=== PATIENT | female | born 1980 | race Caucasian/White ===

== ENCOUNTER → 2017-10-14 12:23 | Outpatient (CLI) | payer MEDICAID, SELFPAY ==
[2017-10-14 14:31] LABS: Absolute Lymphocyte Count 1.67 X10^3/ul (0.83-4.51); Absolute Neutrophil Count 2.3 X10^3/uL (2.0-7.7); Basophil# 0.02 X10^3/uL; Basophil% 0.5 % (0-1); Eosinophil# 0.07 X10^3/uL; Eosinophils% 1.6 % (0-5); Hematocrit 39.6 % (37-47); Hemoglobin 13.1 g/dl (12.0-15.0); Lymphocyte # 1.67 X10^3/ul (4.0); Lymphocyte % 38.6 % (19-41); Mean Corp Hgb Conc 33.1 g/gl (32-36); Mean Corpuscular Volume 87.8 fL (81-99); Mean Platelet Vol. 9.8 fl (6.2-12.0); Monocyte# 0.23 X10^3/uL; Monocyte% 5.3 % (0-10); Neutrophil # 2.34 X10^3/uL (2.7-7.7); Platelet Count 204 K/mm3 (150-450); RBC Distribution Width CV 13.3 % (11.6-14.6); RBC Distribution Width SD 42.9 fl (35.1-43.9); Red Blood Count 4.51 M/mm3 (4.2-5.4); White Blood Count 4.3 K/mm3 (4.4-11.0)
[2017-10-14 14:35] LABS: POSITIVE COUNT NO; POSITIVE DIFFERENTIAL NO; POSITIVE MORPHOLOGY NO
[2017-10-14 14:53] LABS: Hemoglobin A1c 5.4 % (4.2-6.3)
[2017-10-14 15:03] LABS: AST(SGOT) 26 U/L (15-37); Alanine Aminotransfer ALT/SGPT 46 U/L (13-56); Albumin, Serum 3.7 g/dL (3.2-5.0); Alkaline Phosphatase 124 U/L (45-117); Anion Gap 8 (5-15); BUN 9 mg/dL (7-18); BUN/Creat Ratio 13.2 RATIO (10-20); Calcium,Total 8.7 mg/dL (8.5-10.1); Chloride 106 mmol/L (98-107); Creatinine, Serum 0.68 mg/dL (0.55-1.02); EST Glomerular Filtration Rate 104 mL/min (>60); Est Glom Filt Rate - Afr Amer 126 mL/min (>60); Globulin 3.8 g/dL (2.2-4.2); Glucose 91 mg/dL (74-106); Potassium 4.1 mmol/L (3.5-5.1); Protein, Total 7.5 g/dL (6.4-8.2); Sodium Level 139 mmol/L (136-145)
[2017-10-15 09:33] LABS: Cholesterol 189 mg/dL (200); High Density Lipoprotein 51 mg/dL; Triglycerides 113 mg/dL; Very Low Density Lipoprotein 23 mg/dL (5-40)
[2017-10-15 10:17] LABS: HIV - WCH Non-Reactive (Nonreactive)
[2017-10-15 11:56] LABS: HEPATITIS B SURFACE AG Negative (Negative); Hep B Surface Antibodies Reactive (.); Hep C Antibodies <0.1 s/co ratio (0.0-0.9)
== END ==
PROVIDERS: Visit Provider Family Medicine
DX: F41.8 Other specified anxiety disorders (principal); R60.9 Edema, unspecified; Z86.2 Personal history of diseases of the blood and blood-forming organs and certain disorders involving the immune mechanism; Z83.3 Family history of diabetes mellitus; Z87.898 Personal history of other specified conditions
CPT/HCPCS: 36415; 80053; 80061; 83036; 84443; 85025; 86703; 86706; 86803; 87340

== ENCOUNTER → 2017-10-30 09:03 | Outpatient (CLI) | payer MEDICAID, SELFPAY ==
--- NOTE | 2017-10-30 09:06 | ECHOD_ITS ---
Reason For Study: PHTN Procedure This was a 2D Doppler, Color Flow transthoracic echocardiogram. Exam performed in department. Left Ventricle Normal LV size. Left ventricular systolic function is normal. The estimated ejection fraction is 56 %. No evidence for diastolic dysfunction. No regional wall motion abnormalities noted. Right Ventricle Normal RV size. Normal systolic function. Atria Normal left atrium. Normal right atrium. Mitral Valve Normal mitral valve. Tricuspid Valve Normal tricuspid valve. Mild tricuspid valve insufficiency. Pulmonary artery systolic pressure is 27 mmHg. Aortic Valve Normal aortic valve. Trisinus/trileaflet aortic valve. Pulmonic Valve Normal pulmonic valve. Great Vessels Normal aortic root. The pulmonary artery is normal size. Normal inferior vena cava. Pericardium/Pleural No pericardial effusion. MMode/2D Measurements & Calculations LVIDd: 4.3 cm IVSd: 0.97 cm Ao root diam: 2.4 cm LVIDs: 2.9 cm LVPWd: 1.0 cm LA dimension: 3.1 cm RVDd: 3.1 cm FS: 32.5 % LAV(MOD-bp): 46.2 ml LA A4 area: 15.7 cm2 RA A4 area: 12.1 cm2 LAV(MOD-bp) Indexed: 26.5 ml/m2 LAV(MOD-sp2): 44.4 ml LAV(MOD-sp4): 44.1 ml Time Measurements MV dec time: 0.19 sec Doppler Measurements & Calculations MV E max matt: 115.0 cm/sec Lat Peak E' Matt: 12.6 cm/sec Med Peak E' Matt: 12.0 cm/sec MV A max matt: 77.8 cm/sec E/E' lat: 9.2 E/E' med: 9.5 MV E/A: 1.5 Ao V2 max: 127.4 cm/sec PA V2 max: 85.0 cm/sec TR max matt: 236.3 cm/sec Ao max P.5 mmHg TR max P.4 mmHg Interpretation Summary Normal LV size. Left ventricular systolic function is normal. The estimated ejection fraction is 56 %. No evidence for diastolic dysfunction. Mild tricuspid valve insufficiency. Ordering Physician: Anthony Patino Referring Physician: Anthony Patino Performed By: Annette Abbott RDCS, RVT
== END ==
PROVIDERS: Family Provider Family Medicine; PCP Family Medicine; Visit Provider Family Medicine
DX: I27.20 Pulmonary hypertension, unspecified (principal)
CPT/HCPCS: 93306

== ENCOUNTER → 2017-12-03 17:12 | Outpatient (CLI) | payer MEDICAID, SELFPAY ==
[2017-12-03 18:56] LABS: Chlamydia Trachomatis by PCR Negative (Negative); Neisserai gonorrhoeae by PCR Negative (Negative); Probe Check PASS; Sample Adequacy Control PASS; Specimen Processing Control PASS
[2017-12-09 11:07] LABS: HPV APTIMA, High Risk Negative (Negative)
== END ==
PROVIDERS: Family Provider Family Medicine; PCP Family Medicine; Visit Provider Nurse Practitioner Women's Health
DX: Z12.4 Encounter for screening for malignant neoplasm of cervix (principal); Z11.3 Encounter for screening for infections with a predominantly sexual mode of transmission
CPT/HCPCS: 87491; 87591; 88175; G0145

== ENCOUNTER 2018-04-15 22:01 | Emergency (ER) | payer MEDICAID, SELFPAY ==
[2018-04-15 22:03] VITALS: BP 169/94; PULSE 66; RESP 18; TEMP 36.9; O2SAT 99; BMI 34.9
[2018-04-15 22:25] LABS: Mucous, Urine 0 SEEN /hpf (<or=2+)
[2018-04-15] MEDS: Ondansetron 4 MG/2 ML Vial IV (22:35)
[2018-04-15] MEDS: 0.9% Normal Saline 1,000 ML 1000 ML IV (22:35)
[2018-04-15] MEDS: Ketorolac 30 MG/ML Syringe IV (22:35)
[2018-04-15 22:42] LABS: Color, Urine Yellow (Yellow); Glucose, Dipstick Normal (Normal); Ketone-Dipstick Negative (Negative); Leukocyte Esterase-Dipstick Negative /ul (Negative); Nitrite-Dipstick Negative (Negative); Occult Blood-Urine Negative /ul (Negative); Protein-Dipstick 15 mg/dl (Negative); Specific Gravity, Urine 1.015 (1.002-1.030); Urine Bilirubin Dipstick Negative (Negative); Urine Clarity Clear (Clear); Urine Urobilinogen Normal (Normal); Urine pH 6.5 (5.0 - 8.0)
[2018-04-15 22:52] LABS: Absolute Lymphocyte Count 1.96 X10^3/ul (0.83-4.51); Absolute Neutrophil Count 4.8 X10^3/uL (2.0-7.7); Basophil# 0.03 X10^3/uL; Basophil% 0.4 % (0-1); Eosinophil# 0.12 X10^3/uL; Eosinophils% 1.7 % (0-5); Hematocrit 40.5 % (37-47); Hemoglobin 13.7 g/dl (12.0-15.0); Lymphocyte # 1.96 X10^3/ul (4.0); Lymphocyte % 27.1 % (19-41); Mean Corp Hgb Conc 33.8 g/gl (32-36); Mean Corpuscular Hgb 29.8 pg (27.0-32.0); Mean Platelet Vol. 10.2 fl (6.2-12.0); Monocyte# 0.29 X10^3/uL; Neutrophil # 4.83 X10^3/uL (2.7-7.7); Neutrophil % 66.7 % (47-70); Platelet Count 245 K/mm3 (150-450); RBC Distribution Width CV 13.1 % (11.6-14.6); RBC Distribution Width SD 41.9 fl (35.1-43.9); White Blood Count 7.2 K/mm3 (4.4-11.0)
--- NOTE | 2018-04-15 22:52 | ED.VISSUMM ---
- ER Visit Summary Date of Service: 04/15/18 Chief Complaint: Abdominal pain History of Present Illness: The patient is a 37 F presenting with abdominal pain. She states this has been ongoing for the past 3 days. Pain has been intermittent. She states it is worse at night. She states today it was worse after eating pizza. She has pain in the upper abdomen. She has nausea with no vomiting. Denies diarrhea or constipation. Denies urinary complaints. Denies fever. Denies other complaints. Physical Examination: Vitals are stable. Patient is afebrile. Alert no acute distress. HEENT exam is unremarkable. Neck is supple. Lungs are clear and equal bilaterally. Heart is regular rate and rhythm. Abdomen is soft epigastric, bilateral upper quadrant tenderness with no rebound or guarding. Extremities are unremarkable. Skin is warm and dry. No focal neurologic deficit. Remainder of exam is unremarkable. Emergency Department Course and Treatment: Patient given Toradol IV. CBC, chemistries unremarkable. Liver lipase are normal. HCG negative. Urinalysis is unremarkable. Ultrasound gallbladder shows no evidence of cholecystitis. Patient continues to have pain and she was given a GI cocktail with improvement. She is given a prescription for Pepcid. Advised to follow up with PCP. Advised to return to ED for worsening complaints. Disposition: Discharge home Impression: Abdominal pain This note was generated with [employer] dictation software. It may contain incorrect words, spelling, and punctuation that were not noted in review of the chart prior to signing ED Disposition - Plan for ED Patient: Chief Complaint: Abd Pain Instructions: ED Abdominal Pain Unkn Cause Prescriptions: Famotidine [Pepcid] 20 mg PO BID #28 tablet Referrals: Anthony Patino MD [Primary Care Provider] - Jose Eduardo Butler MD [NON-STAFF] -
[2018-04-15 22:53] LABS: White Blood Cells 0-5 SEEN /hpf (0-5)
[2018-04-15 22:54] LABS: Red Blood Cells-Urine 0-5 SEEN /hpf (0-5)
[2018-04-15 22:55] LABS: Squamous Epithelial Cells - UA 10-25 SEEN /hpf (5-10)
[2018-04-15 22:56] LABS: Bacteria 2+ /hpf (None Seen)
[2018-04-15 22:57] LABS: POSITIVE COUNT NO; POSITIVE DIFFERENTIAL NO; POSITIVE MORPHOLOGY NO
[2018-04-15 23:15] LABS: AST(SGOT) 19 U/L (15-37); Alanine Aminotransfer ALT/SGPT 26 U/L (13-56); Alkaline Phosphatase 82 U/L (45-117); Anion Gap 8 (5-15); BUN 8 mg/dL (7-18); BUN/Creat Ratio 10.1 RATIO (10-20); Bilirubin, Direct 0.08 mg/dL (0.00-0.30); Calcium,Total 8.9 mg/dL (8.5-10.1); Chloride 105 mmol/L (98-107); Creatinine, Serum 0.79 mg/dL (0.55-1.02); EST Glomerular Filtration Rate 87 mL/min (>60); Est Glom Filt Rate - Afr Amer 105 mL/min (>60); Estimated Creatinine Clearance 70.71 ml/min; Globulin 3.4 g/dL (2.2-4.2); Glucose 108 mg/dL (74-106); Lipase 331 U/L (73-393); Potassium 3.9 mmol/L (3.5-5.1); Protein, Total 7.4 g/dL (6.4-8.2); Sodium Level 140 mmol/L (136-145)
[2018-04-15] MEDS: Mag Hydrox/Al Hydrox/Simeth 30 ML UDC PO (23:32)
[2018-04-15 23:34] LABS: Pregnancy, Serum, hCG Quali. NEGATIVE Negative (0-9 Nonpreg)
--- NOTE | 2018-04-15 23:46 | RAD_ITS ---
STUDY: X-RAY - ACUTE ABDOMINAL SERIES REASON FOR EXAM: Female, 37 years old. Epigastric pain for 3 days. TECHNIQUE: Single view of the chest. Supine, right view(s) of the abdomen were obtained. COMPARISON: None. FINDINGS: The lungs are clear and expanded. Normal size heart. Normal mediastinum and sanjiv. Normal visualized pulmonary arteries. Normal visualized aortic arch and descending thoracic aorta. There is a non-specific bowel gas pattern. The soft tissue structures of the abdomen and pelvis are unremarkable. IUD centrally located in the pelvis. Normal visualized osseous structures. RAD/Acute Abdomen Inc Chest IMPRESSION: Normal x-ray examination of the chest, abdomen, and pelvis. Electronically Signed: Ramana Medrano MD at 0:35 EDT , Service support ,
--- NOTE | 2018-04-15 23:48 | ED.DEP ---
ED Disposition - Plan for ED Patient: Chief Complaint: Abd Pain Instructions: ED Abdominal Pain Unkn Cause Prescriptions: Famotidine [Pepcid] 20 mg PO BID #28 tablet Referrals: Anthony Patino MD [Primary Care Provider] - Jose Eduardo Butler MD [NON-STAFF] -
[2018-04-16 00:44] VITALS: RESP 18; O2SAT 98
== END 2018-04-16 00:50 | disposition home or self-care (01) ==
LOC: ED 22:28
PROVIDERS: Emergency Provider Emergency Medicine; Family Provider Family Medicine; PCP Family Medicine
DX: R10.9 Unspecified abdominal pain (principal); R11.0 Nausea
CPT/HCPCS: 74022; 76705; 80048; 80076; 81001; 83690; 84703; 85025; 99285; J7030; A4216; J2405

== ENCOUNTER → 2021-05-10 16:15 | Outpatient (CLI) | payer OTHER, SELFPAY ==
[2021-05-11 08:41] LABS: HIV - WCH Non-Reactive (Nonreactive); Hepatitis C Antibody Non-Reactive (Nonreactive); Syphilis Antibodies Non-reactive
[2021-05-13 10:32] LABS: HSV 2 IgG > 23.60 index (0.00-0.90)
[2021-05-14 22:07] LABS: Chlamydia By Nucleic Acid AMP Negative (Negative)
[2021-05-14 22:30] LABS: Gonococcus By Nucleic Acid AMP Negative (Negative)
== END ==
PROVIDERS: PCP Family Medicine; Referring Provider Nurse Practitioner Women's Health; Visit Provider Nurse Practitioner Women's Health
DX: Z20.2 Contact with and (suspected) exposure to infections with a predominantly sexual mode of transmission (principal)
CPT/HCPCS: 36415; 86695; 86696; 86703; 86780; 86803; 87070; 87205; 87491; 87591

== ENCOUNTER → 2022-01-08 | Outpatient (CLI) | payer MEDICAID, SELFPAY ==
[2022-01-09 21:08] LABS: Chlamydia By Nucleic Acid AMP Negative (Negative)
[2022-01-09 21:43] LABS: Gonococcus By Nucleic Acid AMP Negative (Negative)
== END | disposition home or self-care (01) ==
LOC: LABSPEC 12:52
PROVIDERS: PCP Family Medicine; Visit Provider Nurse Practitioner Women's Health
DX: Z11.3 Encounter for screening for infections with a predominantly sexual mode of transmission (principal); N76.0 Acute vaginitis
CPT/HCPCS: 87070; 87205; 87491; 87591

== ENCOUNTER 2022-05-27 19:36 | Emergency (ER) | payer MEDICAID, SELFPAY ==
[2022-05-27 19:37] VITALS: BP 134/90; PULSE 102; RESP 16; TEMP 36.1; O2SAT 99; BMI 27.1
[2022-05-27 19:40] VITALS: BP 134/90; PULSE 102; RESP 16; TEMP 36.1; O2SAT 99
--- NOTE | 2022-05-27 20:13 | CM.ED ---
ARLEN called Yolette at [facility] and said that patient presents to the ED for a MH evaluation. Yolette reports that patient has been seen previously, in December 2020, and reports 20 years of cocaine and heroin use and 3 years sober and then meth use. ARLEN advised that the ED will keep Crisis update. Plan: To be determined Anali HOFFMANN
--- NOTE | 2022-05-27 20:29 | EDS_ITS ---
HPI History of Present Illness Chief Complaint: Mental Health Detail of Chief Complaint: Substance abuse including opiates, speed and methamphetamines. Informant: patient Onset/Context/Timing Onset: Month(s) Context: Gradual Onset Timing: Intermittent Current Severity: Mild Maximum Severity: Mild Narrative Narrative: 41-year-old female history of drug abuse with a prior history of endocarditis. Has a history of anxiety and depression. Concerned she may have mental health issues. Said she is adamantly not suicidal or homicidal. She is seeing things that she believes may not be there. Says she has been using IV drugs again. She wants some screening labs done. She is also concerned for possible hepatitis because thinks that someone gave her a dirty needle to use. She shoots up in both antecubital areas. Said in the past she did go through detox. She has an outpatient center she is going to be going to and does not want to be admitted for detox. Prior similar symptoms: Yes Recent Illness/Hospitalization: No PFSH PFSH Medical History Anxiety and depression History of anemia History of endocarditis Home Medications buprenorphine 8 mg-naloxone 2 mg sublingual tablet 1 tab sublingual QDAY 12/03/17 [History Last Taken Unknown] levonorgestrel 20 mcg/24 hours (8 yrs) 52 mg intrauterine device (Mirena) 1 device intrauterine ONCE 01/08/22 [History Last Taken Unknown] Allergy/AdvReac Type Severity Reaction Status Date / Time penicillin G Allergy Mild Other Verified 01/08/22 11:48 Family History Mother Breast cancer Diabetes Hypertension Father Diabetes Hypertension Surgical History delivery delivered Social History current occupational status: employed Smoking Status: Never smoker Electronic Cigarette Use: with nicotine alcohol intake: never substance use type: methamphetamine caffeine: Yes frequency: 3-4 times per week seatbelt use: always do you feel safe at home: Yes additional social history: Single ROS ROS ED ROS Narrative Hallucinations. Review of Systems ROS Unobtainable: Denies due to encephalopathy Constitutional Constitutional ED: Denies chills or fever(s) Eyes Eyes: Denies blurry vision ENT ENT ED: Denies ear pain Cardiovascular Cardiovascular: Denies chest pain Respiratory/Chest Respiratory/Chest: Denies cough or dyspnea Gastrointestinal Gastrointestinal: Denies abdominal pain Genitourinary Genitourinary ED: Denies dysuria Musculoskeletal Musculoskeletal: Denies arthralgias Integumentary Denies abscess Neurologic Neurologic: Denies headache(s) Psychiatric Psychiatric: Denies anxiety or depression Endocrine Endocrinology: Denies cold intolerance Hematologic/Lymphatic Hematologic/Lymphatic: Denies easy bleeding or easy bruising Allergic/Immunologic Allergic/Immunologic ED: Denies mouth swelling EXAM Physical Exam Narrative Exam Narrative: 41-year-old female no acute distress. Vital signs stable afebrile. H EENT exam unremarkable. Moist Riis membranes. Neck nontender no lymphadenopathy. Lungs clear to auscultation bilaterally. Heart regular rhythm rate about 100 no murmur. Abdomen soft nontender. Moving all 4 extremities. Neurovascular intact. Calves are nontender without edema or cords. She has very explicit track rodas in both antecubital areas. There is no acute infection. No cellulitis or abscess. Neurologically she is awake and alert with no focal motor deficits. She is cooperative. She is calm. She makes eye contact. Const Vital Signs: 05/27/22 19:37 05/27/22 19:40 Temperature 96.9 F L 96.9 F L Temperature Source Temporal Temporal Pulse Rate 102 H 102 H Respiratory Rate 16 16 Blood Pressure 134/90 H 134/90 H Blood Pressure Mean 104 104 Pulse Ox 99 99 Oxygen Delivery Method Room Air Room Air Positive well nourished and well developed; Negative for obese, cachectic, contractures or unkempt General Appearance ED: well developed and NAD; Negative for unkempt, cachectic, contractures or pallor Nutritional Appearance: Negative for cachectic or obese HEENT Reports moist mucous membranes; Denies dry mucous membranes atraumatic; Negative for trauma or tenderness Mouth ED: No dry mucous membranes Mouth: No dry mucous membranes Eyes PERRL and EOMs intact bilaterally General Eye ED: Negative for pale conjunctiva or scleral icterus Neck no lymphadenopathy, supple and no JVD Thyroid: Negative for tender Lymph Lymphatic: no lymphadenopathy noted and lymphadenopathy Chest Wall inspection of chest normal and palpation of chest normal Chest: Negative for other Resp normal respiratory effort and clear to auscultation bilaterally Effort and Inspection: Negative for retractions Auscultation: Negative for rales, rhonchi, wheezes or diminished lung sounds Cardio regular rate, regular rhythm, S1 normal heart sound, S2 normal heart sound and no murmurs Rate: Negative for bradycardia or tachycardic Rhythm: Negative for abnormal rhythm Bruits: Negative for other GI soft to palpation, non-tender, non-distended and no masses Inspection: Negative for abdominal distention Auscultation: Negative for hyperactive bowel sounds Palpation: Negative for tender or guarding Back/Spine no CVA tenderness General Back: Negative for CVA tenderness Cervical Spine: Negative for cervical spine tenderness Thoracic Spine / Upper Back: Negative for thoracic spinal tenderness Lumbar Spine / Lower Back: Negative for lumbar spinal tenderness Coccyx: Negative for swelling Extremity Extremity Narrative: Track rodas both antecubital areas. General Extremety ED: Negative for edema or tenderness General Extremity: Negative for edema Neuro oriented x3, CN's II-XII intact bilaterally and no sensory deficits noted Sensorium / Orientation: alert, oriented to person, oriented to place and oriented to time; Negative for confused, lethargic, stuporous or other Speech: speech normal Motor Exam: strength 5/5 throughout Psych mental status grossly normal and thought process normal Appearance: Negative for unkempt Attitude: No belligerent, No agitated, No aggressive and No hostile Mood & Affect: Negative for depressed, anxious or tearful Skin General Skin Exam: Negative for jaundice or pallor Lesions: no lesions Rashes: no rashes MDM MDM MDM Narrative Medical decision making narrative: 41-year-old with multiple complaints. She thinks it may be secondary to anxiety or from drug use. She is not homicidal or suicidal. She does not want to be admitted for either psychiatric care or detox. She is going to follow-up with outpatient detox center she is already working with. She would like screening labs which will be obtained. Repeat exam patient is doing well. She will be discharged home with outpatient follow-up with her outpatient detox facility. She should also follow-up with counseling center. I do think primarily this is drug induced psychosis. Also associated anxiety. Lab Data Attestation: I reviewed the patient's lab results. Lab results narrative: CBC shows a white count 7.7. H&H 11.7 and 35.7. Platelets 321. Chemistries show a gap of 7 normal BUN and creatinine. Liver enzymes are unremarkable. Per patient request hepatitis panel sent but will not be back tonight. Labs: Laboratory Results - last 24 hr 05/27/22 05/27/22 20:55 20:55 WBC 7.7 RBC 4.10 L Hgb 11.7 L Hct 35.7 L MCV 87.1 MCH 28.5 MCHC 32.8 RDW Std Deviation 42.3 RDW Coeff of Ammon 13.3 Plt Count 321 MPV 8.9 Immature Gran % (Auto) 0.300 Neut % (Auto) 69.7 Lymph % (Auto) 24.0 Daniels % (Auto) 4.0 Eos % (Auto) 1.3 Baso % (Auto) 0.7 Absolute Neuts (auto) 5.3 Absolute Lymphs (auto) 1.84 Nucleated RBC % 0 Sodium 140 Potassium 3.6 Chloride 105 Carbon Dioxide 28.0 Anion Gap 7 BUN 9 Creatinine 0.70 Estim Creat Clear Calc 76.74 Est GFR (MDRD) Af Amer 118 Est GFR (MDRD) Non-Af 98 BUN/Creatinine Ratio 12.8 Glucose 114 H Calcium 8.9 Total Bilirubin 0.50 AST 14 L ALT 21 Alkaline Phosphatase 78 Total Protein 7.2 Albumin 3.5 Globulin 3.7 Albumin/Globulin Ratio 0.9 Discharge Plan Triage Chief Complaint: Mental Health ED Provider: Wil Aburto Dx/Rx/DC Orders Clinical Impression: Drug-induced psychotic disorder, History of drug abuse, History of endocarditis Instructions: Recovering from Addiction, ED Drug Abuse Prescriptions: No Action buprenorphine-naloxone 8-2 mg tablet, sublingual 1 tab SUBLINGUAL QDAY Mirena 20 mcg/24 hours (7 yrs) 52 mg intrauterine device 1 device intrauterine ONCE Rx Instructions: as a single dose Primary Care Provider: Mayra Gallagher MUTUEL MACHINE OPERATOR Referrals: Anthony Patino MD [Med Staff - Physician/Ophthalmologist] - As soon as possible Activity Restrictions/Additional Instructions: Your primary care physician. Follow-up with counseling center and also your drug rehabilitation center. Your labs today were pretty unremarkable. The hepatitis panel will not be returning until tomorrow. Disposition Disposition: Home, Self Care
[2022-05-27 21:05] LABS: Absolute Lymphocyte Count 1.84 X10^3/uL (0.83-4.51); Absolute Neutrophil Count 5.3 X10^3/uL (2.0-7.7); Basophil# 0.05 X10^3/uL; Basophil% 0.7 % (0-1); Eosinophils% 1.3 % (0-5); Hematocrit 35.7 % (37-47); Hemoglobin 11.7 g/dL (12.0-15.0); Lymphocyte # 1.84 X10^3/ul (0.83-4.51); Mean Corp Hgb Conc 32.8 g/dL (32-36); Mean Corpuscular Hgb 28.5 pg (27.0-32.0); Mean Corpuscular Volume 87.1 fL (81-99); Mean Platelet Vol. 8.9 fl (6.2-12.0); Monocyte# 0.31 X10^3/uL; NRBC Flagged by Analyzer 0 % (0-5); Neutrophil # 5.34 X10^3/uL (2.7-7.7); Neutrophil % 69.7 % (47-70); Platelet Count 321 K/mm3 (150-450); RBC Distribution Width CV 13.3 % (11.6-14.6); RBC Distribution Width SD 42.3 fl (35.1-43.9); White Blood Count 7.7 K/mm3 (4.4-11.0)
[2022-05-27 21:28] LABS: ALB/GLOB Ratio 0.9 RATIO (0.9-2.4); AST(SGOT) 14 U/L (15-37); Alanine Aminotransfer ALT/SGPT 21 U/L (13-56); Albumin, Serum 3.5 g/dL (3.2-5.0); Alkaline Phosphatase 78 U/L (45-117); Anion Gap 7 (5-15); BUN 9 mg/dL (7-18); BUN/Creat Ratio 12.8 RATIO (10-20); Calcium,Total 8.9 mg/dL (8.5-10.1); Chloride 105 mmol/L (98-107); EST Glomerular Filtration Rate 98 mL/min (>60); Est Glom Filt Rate - Afr Amer 118 mL/min (>60); Estimated Creatinine Clearance 76.74 ml/min; Globulin 3.7 g/dL (2.2-4.2); Glucose 114 mg/dL (74-106); Potassium 3.6 mmol/L (3.5-5.1); Protein, Total 7.2 g/dL (6.4-8.2); Sodium Level 140 mmol/L (136-145)
[2022-05-27 21:55] VITALS: BP 126/78; PULSE 78; RESP 16; TEMP 36.9; O2SAT 100
[2022-05-29 07:08] LABS: HEPATITIS B SURFACE AG Negative (Negative); Hep C Antibodies <0.1 s/co ratio (0.0-0.9); Hepatitis A IgM Antibody Negative (Negative); Hepatitis B Core AB IgM Negative (Negative)
== END 2022-05-27 21:56 | disposition home or self-care (01) ==
PROVIDERS: Emergency Provider Emergency Medicine; PCP Nurse Practitioner Family; Visit Provider Emergency Medicine
DX: F24 Shared psychotic disorder (principal); F41.9 Anxiety disorder, unspecified; F15.90 Other stimulant use, unspecified, uncomplicated; F17.210 Nicotine dependence, cigarettes, uncomplicated
CPT/HCPCS: 36415; 80053; 80074; 85025; 99282

== ENCOUNTER 2023-02-20 10:06 | Emergency (ER) | payer MEDICAID, SELFPAY ==
[2023-02-20 10:07] VITALS: BP 131/91; PULSE 86; RESP 16; TEMP 35.7; O2SAT 98; BMI 29.8
--- NOTE | 2023-02-20 10:26 | EDS_ITS ---
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 She felt like maybe she had a fever this morning but she did not take anything for it and she feels okay now and is afebrile now. She denies any chest pain shortness of breath or unexplained syncope lately or any other illness, she just has been dealing with these wounds. Her last IV drug use was 2 days ago. [facility] Medical History Anxiety and depression History of anemia History of endocarditis Home Medications buprenorphine 8 mg-naloxone 2 mg sublingual tablet 1 tab sublingual QDAY 12/03/17 [History Last Taken Unknown] levonorgestrel 21 mcg/24 hours (8 yrs) 52 mg intrauterine device (Mirena) 1 device intrauterine ONCE 01/08/22 [History Last Taken Unknown] doxycycline monohydrate 100 mg capsule 100 mg PO BID #20 CAPSULES 02/20/23 [Rx Last Taken Unknown] Allergy/AdvReac Type Severity Reaction Status Date / Time penicillin G Allergy Mild Other Verified 01/08/22 11:48 Family History Mother Breast cancer Diabetes Hypertension Father Diabetes Hypertension Surgical History delivery delivered Social History (Updated 02/20/23 @ 10:[address] Darryn Perez MD) current occupational status: employed Smoking Status: Current every day smoker tobacco type: e-cigarettes Electronic Cigarette Use: with nicotine alcohol intake: never substance use type: IV drugs and methamphetamine caffeine: Yes frequency: 3-4 times per week seatbelt use: always do you feel safe at home: Yes additional social history: Single ROS ROS ED Constitutional Constitutional ED: Reports fever(s) and subjective; Denies chills Cardiovascular Cardiovascular: Denies chest pain, palpitations, racing heartbeat or syncope Respiratory/Chest Respiratory/Chest: Denies dyspnea Musculoskeletal Musculoskeletal: Reports extremity pain; Denies neck pain Integumentary Reports abscess and wounds; Denies Abrasions or rash Neurologic Neurologic: Denies headache(s), paresthesias or weakness EXAM Physical Exam Const Vital Signs: 02/20/23 10:07 Temperature 96.3 F L Temperature Source Temporal Pulse Rate 86 Respiratory Rate 16 Blood Pressure 131/91 H Blood Pressure Mean 104 Pulse Ox 98 Oxygen Delivery Method Room Air Positive well nourished and well developed General Appearance ED: well developed and NAD Neck full ROM and supple Cardio regular rate, regular rhythm and no murmurs Rate: Negative for tachycardic Back/Spine normal ROM and normal to inspection Extremity Extremity Narrative: Chronic superficially open erythematous wounds across both antecubital fossae on the upper extremities, nontender and not draining, appear to be healing by secondary intent; the wound on the right upper extremity is more open than the left. However at the medial aspect of the 1 on the left upper extremity, there is a 3-4 cm abscess extremely tender, full, indurated, progressing down toward but not including the medial epicondyles, without any spontaneous discharge expressible. Neuro oriented x3, no focal motor deficits and no sensory deficits noted Sensorium / Orientation: alert Psych mental status grossly normal and thought process normal Skin Skin Narrative: Wounds bilateral antecubital fossae with an abscess on the left, see above for details no other rashes, no lymphangitis. Rashes: no rashes MDM MDM MDM Narrative Medical decision making narrative: See the procedure note, abscess was drained and packed, she will be placed on doxycycline since according to the most current local antibiogram, has the best coverage against MRSA. I did send a culture given her chronic wounds and possible polymicrobial nature of this wound. She is well-appearing, does not have tachycardia, or a fever and her vital signs are otherwise normal, so given that she does not have a cardiac murmur right now I do not think we need other blood tests or cultures to evaluate for endocarditis. Procedures Other Procedures Procedure(s): Complex abscess I & D: Left antecubital fossa prepped and draped in a sterile fashion with chlorhexidine and isopropanol, anesthetized with a total of 3 cc of plain 1% lidocaine, incised close to the antecubital fossa where the rest of the chronic wound is, and the abscess is pointing, with a #11 blade, significant amount of purulent material expressed and cultured, deloculated the cavity briefly which is smaller than appeared likely clinically, gently irrigated the cavity with 20 cc of sterile saline, and packed with a small amount of half-inch sterile gauze. Dressed with bacitracin tolerated well no complications. Discharge Plan Triage Chief Complaint: Abscess ED Provider: Darryn Perez Dx/Rx/DC Orders Clinical Impression: Cutaneous abscess of left upper extremity Instructions: ED Abscess Incision And Drainage Prescriptions: New doxycycline monohydrate 100 mg capsule 100 mg PO BID Qty: 20 0RF No Action buprenorphine-naloxone 8-2 mg tablet, sublingual 1 tab SUBLINGUAL QDAY Mirena 20 mcg/24 hours (7 yrs) 52 mg intrauterine device 1 device intrauterine ONCE Rx Instructions: as a single dose Primary Care Provider: Mayra Gallagher FUNERAL PRE NEED CONSULTANT Referrals: Mayra Gallagher FUNERAL PRE NEED CONSULTANT, FUNERAL PRE NEED CONSULTANT-C [Primary Care Provider] - Keep Michelle appointment Activity Restrictions/Additional Instructions: Dressing changes as often as needed. In 48 hours approximately, if the abscess seems to be improving, you may pull out the gauze and discard. If it comes out accidentally before that since there is not much on the inside, do not attempt to put it back in, and continue to just keep the area cleansed and dressed. Avoid pools, ponds, oceans, lakes, etc. Disposition Disposition: Home, Self Care
[2023-02-20] MEDS: Lidocaine 1% (20 ml mdv) 20 ML Vial INFILT (10:54)
[2023-02-20] MEDS: Doxycycline 100 MG CAPSULE PO (10:54)
== END 2023-02-20 11:05 | disposition home or self-care (01) ==
LOC: ED 10:55
PROVIDERS: Emergency Provider Emergency Medicine; PCP Nurse Practitioner Family; Visit Provider Emergency Medicine
DX: L02.414 Cutaneous abscess of left upper limb (principal); F41.8 Other specified anxiety disorders; Z79.899 Other long term (current) drug therapy; Z79.3 Long term (current) use of hormonal contraceptives; F17.290 Nicotine dependence, other tobacco product, uncomplicated
CPT/HCPCS: 10060; 99283; A4216